=== PATIENT | male | born 1970 | race Hispanic/Latino ===

== ENCOUNTER 2019-10-14 09:04 | Outpatient (CLI) | payer OTHER ==
--- NOTE | 2019-10-14 11:46 | ULT ---
GALLBLADDER ULTRASOUND: Date: 10/14/19 HISTORY: Elevated liver function tests. COMPARISON: None. TECHNIQUE: Utilizing a multihertz transducer, sonographic imaging of the right upper quadrant was performed in t he longitudinal and transverse plane. FINDINGS: Pancreas obscured by bowel gas. Heterogeneous echotexture of liver may be due to hepatic steatosis or hepatocellular disease. Subsequ ent limited evaluation of hepatic masses and intrahepatic biliary dilatation. Contour of the hepatic margin maintained. Right hepatic lobe is enlarged, measuring 19.5 cm. Portal vein is patent. Appropriate direction of flow. Common hepatic duct appears to be 0.3 cm. Limited evaluation of the common bile duct. Sonographic evidence of cholelithiasis without evidence of cholecystitis. Gallbladder wall is not thi ckened. No pericholecystic fluid. Negative Schmid's sign. Right kidney has a normal cortical echotexture. No hydronephrosis. Right kidney measures 11.5 x 6.5 x 7.2 cm. IMPRESSION: 1. Limited evaluation of the common bile duct. Common hepatic duct measures 0.3 cm. 2. Sonographic evidence of cholelithiasis without evidence of cholecystitis. 3. Heterogeneous echotexture of the liver which may be due to hepatic steatosis or hepatocellular di sease. Further evaluation with liver mass protocol CT or abdomen MRI if clinically warranted. POS: OFF
== END 2019-10-14 09:05 | disposition home or self-care (01) ==
LOC: SCSULT 09:04
PROVIDERS: ATTEND Internal Medicine Infectious Disease
DX: R94.5 Abnormal results of liver function studies (principal); K80.20 Calculus of gallbladder without cholecystitis without obstruction
CPT/HCPCS: 76705